=== PATIENT | female | born 1985 | race Caucasian/White ===

== ENCOUNTER 2016-08-25 19:12 | Emergency (ER) | payer MEDICAID ==
[~2016-08-25] VITALS: Ht 157.5 cm; Wt 52.8 kg
[2016-08-25 19:18] VITALS: BP 118/80
== END 2016-08-25 21:14 | disposition home or self-care (01) ==
LOC: ED 21:08
DX: H10.023 Other mucopurulent conjunctivitis, bilateral (principal); F12.10 Cannabis abuse, uncomplicated
CPT/HCPCS: 99283